=== PATIENT | female | born 1935 | race Two or more races ===

== ENCOUNTER → 2021-05-07 | Outpatient (CLI) | payer MEDICARE, MEDICAID ==
[~2021-05-07] MED LIST: OMNIPAQUE 350 MG/ML, 75ML BOTTLE ONE
[2021-05-07 11:01] LABS: CREATININE 0.71 mg/dL (0.55-1.02)
== END | disposition home or self-care (01) ==
LOC: RAD 09:59
PROVIDERS: ATTEND Family Medicine
DX: N63.20 Unspecified lump in the left breast, unspecified quadrant (principal); R22.2 Localized swelling, mass and lump, trunk
CPT/HCPCS: 36415; 71260; 82565; Q9967

== ENCOUNTER 2021-05-13 13:59 | Outpatient (CLI) | payer MEDICARE, MEDICAID ==
[2021-05-13] MEDS ORDERED: SODIUM BICARBONATE 4.2%, 5ML ONE (15:22)
[2021-05-13] MEDS ORDERED: LIDOCAINE 1%, 20ML ONE (15:22)
[2021-05-13] MEDS ORDERED: LIDOCAINE 1%-EPI 1:100K, 20ML ONE (15:22)
== END 2021-05-13 23:59 | disposition home or self-care (01) ==
LOC: CFH 13:59
PROVIDERS: ATTEND Family Medicine
DX: C50.412 Malignant neoplasm of upper-outer quadrant of left female breast (principal); Z17.1 Estrogen receptor negative status [ER-]
CPT/HCPCS: 19083; 76642; 77061; 88305; 88360; 88361; 77065; G0279

== ENCOUNTER 2021-06-30 08:43 | Outpatient (CLI) | payer MEDICARE, MEDICAID ==
[2021-06-30] MEDS ORDERED: Vitamin B Complex PO (09:23)
[2021-06-30] MEDS ORDERED: Vitamin C PO (09:23)
[2021-06-30] MEDS ORDERED: Iron PO (09:23)
[2021-06-30] MEDS ORDERED: Fish Oil PO (09:23)
[2021-06-30] MEDS ORDERED: Caltrate PO (09:23)
[2021-06-30] MEDS ORDERED: MULT-717 PO (09:23)
[2021-06-30] MEDS ORDERED: EMPA10TA PO (09:23)
[2021-06-30] MEDS ORDERED: LISI5TAB7 PO (09:23)
[2021-06-30] MEDS ORDERED: METF500T27 PO (09:23)
[2021-06-30] MEDS ORDERED: Vitamin E PO (09:23)
[2021-06-30] MEDS ORDERED: ATOR20TA37 PO (09:23)
[2021-06-30 09:39] LABS: ALANINE AMINOTRANSFERASE 16 U/L (12-78); ALBUMIN 3.7 g/dL (3.4-5.0); ANION GAP 8 mmol/L (5-15); CALCIUM 9.5 mg/dL (8.5-10.1); CHLORIDE 104 mmol/L (98-107); CREATININE 0.84 mg/dL (0.55-1.02)
[2021-06-30 09:42] LABS: ALKALINE PHOSPHATASE 65 U/L (45-117); BILIRUBIN,TOTAL 0.5 mg/dL (0.2-1.0); TOTAL PROTEIN 8.2 g/dL (6.4-8.2)
== END 2021-06-30 23:59 | disposition home or self-care (01) ==
LOC: STAR 08:43
PROVIDERS: ATTEND Surgery
DX: Z01.818 Encounter for other preprocedural examination (principal); C50.219 Malignant neoplasm of upper-inner quadrant of unspecified female breast
CPT/HCPCS: 36415; 80053; 93005

== ENCOUNTER 2021-07-05 08:26 | Day surgery (SDC) | payer MEDICARE, MEDICAID ==
[~2021-07-05] VITALS: Ht 157.5 cm; Wt 59.2 kg
[~2021-07-05 08:26] MED LIST changes: +ATOR20TA37 PO; +Caltrate PO; +EMPA10TA PO; +Fish Oil PO; +Iron PO; +LISI5TAB7 PO; +METF500T27 PO; +MULT-717 PO; -OMNIPAQUE 350 MG/ML, 75ML BOTTLE ONE; +Vitamin B Complex PO; +Vitamin C PO; +Vitamin E PO
[2021-07-05 08:52] VITALS: BP 159/86
[2021-07-05] MEDS ORDERED: LACTATED RINGERS 1,000 ML IV SCH (09:00)
[2021-07-05] MEDS ORDERED: CHLORHEXIDINE 15 ML UDC PO ONE (09:00)
[2021-07-05] MEDS ORDERED: FENTANYL PF 100 MCG/2ML ONE ×5 (11:14→14:06)
[2021-07-05] MEDS ORDERED: CEFAZOLIN 1,000 MG ONE (11:15)
[2021-07-05] MEDS ORDERED: GLYCOPYRROLATE 0.2MG/1ML, 5ML ONE (11:15)
[2021-07-05] MEDS ORDERED: PROPOFOL 10 MG/ML, 20ML ONE (11:15)
[2021-07-05] MEDS ORDERED: ROCURONIUM 10MG/ML,5ML ONE (11:15)
[2021-07-05] MEDS ORDERED: NEOSTIGMINE 1 MG/ML, 10ML ONE (11:15)
[2021-07-05] MEDS ORDERED: ONDANSETRON 2MG/ML, 2ML ONE (11:15)
[2021-07-05] MEDS ORDERED: BUPIVACAINE/PF 0.5% ONE (11:37)
[2021-07-05] MEDS ORDERED: ISOSULFAN BLUE 10 MG/ML, 5ML IV ONE (11:37)
[2021-07-05] MEDS ORDERED: EPINEPHRINE 1 MG/ML, 1ML ONE (11:38)
[2021-07-05] MEDS ORDERED: PROMETHAZINE 25 MG/ML, 1ML IVPush PRN (12:00)
[2021-07-05] MEDS ORDERED: morphine SULFATE 10 MG/ML, 1ML IVPush PRN (12:00)
[2021-07-05] MEDS ORDERED: OXYcodone 5 MG/5 ML ORAL.SOL UDC PO PRN (12:00)
[2021-07-05] MEDS ORDERED: MEPERIDINE/PF 25MG/0.5ML IVPush PRN (12:00)
[2021-07-05] MEDS ORDERED: LABETALOL 5MG/ML, 20ML IV PRN (12:00)
[2021-07-05] MEDS ORDERED: hydrALAzine 20 MG/ML, 1ML IV PRN (12:00)
[2021-07-05] MEDS ORDERED: HALOPERIDOL 5 MG/ML IV PRN (12:00)
[2021-07-05] MEDS ORDERED: HYDROmorphone 1 MG/ML, 1ML INJ IVPush PRN (12:00)
[2021-07-05] MEDS ORDERED: INSULIN SINGLE DOSE, ER ONE (13:27)
[2021-07-05] MEDS ORDERED: INSULIN REGULAR 100 UNITS/ML, 3ML VIAL SQ-INSULIN ONE (13:30)
[2021-07-05] MEDS ORDERED: HYDR-2214 PO (13:44)
[2021-07-05] MEDS: FENTANYL PF 100 MCG/2ML IV PRN ×3 (13:47→14:08)
[2021-07-05] MEDS ORDERED: LABETALOL 5MG/ML, 20ML ONE (13:48)
[2021-07-05] MEDS ORDERED: OXYcodone 5 MG/5 ML ORAL.SOL UDC ONE (14:06)
[2021-07-05] MEDS ORDERED: HYDROcodone/APAP 5/325 TABLET PO PRN (15:30)
[2021-07-05] MEDS ORDERED: HYDROcodone/APAP 5/325 TABLET ONE (15:33)
== END 2021-07-05 16:40 | disposition home or self-care (01) ==
LOC: OUT 08:26
PROVIDERS: ATTEND Surgery
DX: C50.412 Malignant neoplasm of upper-outer quadrant of left female breast (principal); I10 Essential (primary) hypertension; E78.5 Hyperlipidemia, unspecified; E11.9 Type 2 diabetes mellitus without complications; M81.0 Age-related osteoporosis without current pathological fracture; Z90.710 Acquired absence of both cervix and uterus; Z98.890 Other specified postprocedural states; Z79.899 Other long term (current) drug therapy
CPT/HCPCS: 19301; 38525; 38792; 82962; 88307; 88333; C1729; J0171; J0690; J2405; J2704; J2710; J3010; J7120; 88361; J1815